=== PATIENT | female | born 1965 | race Caucasian/White ===

== ENCOUNTER 2024-12-22 07:15 | Outpatient (RCR) | payer OTHER, SELFPAY | END 2024-12-22 09:25 | disposition home or self-care (01) | LOC: ANHCPREHAB 07:15 | DX: I50.89 Other heart failure (principal) | CPT/HCPCS: 93798 ==

== ENCOUNTER 2025-02-25 09:23 | Outpatient (CLI) | payer OTHER, SELFPAY ==
--- NOTE | ~2025-02-25 | MM_ITS ---
EXAMINATION: MM screening [facility] w serafin HISTORY: Screening TECHNIQUE: Craniocaudal and mediolateral oblique 3-D tomosynthesis images were obtained and synthetic 2-D images were generated. CAD analysis was submitted and interpreted. COMPARISON: No prior mammogram is available for comparison at this institution. BREAST PARENCHYMAL COMPOSITION: Not Dense: The breasts are almost entirely fatty. FINDINGS: There is no evidence of suspicious mass, calcification, or architectural distortion to suggest malignancy in either breast. IMPRESSION: 1. No mammographic evidence of malignancy. Recommend routine screening mammography in one year. BI-RADS Category 1: Negative Reviewed, dictated, and finalized at Location [facility]. Reviewed, dictated and finalized at location Q. IMPRESSION: 1. No mammographic evidence of malignancy. Recommend routine screening mammogra phy in one year. BI-RADS Category 1: Negative
--- OUTSIDE RECORDS SUMMARY | 2025-02-25 10:32 | XMS_ITS ---
Author Organization [facility] al Address [address] [place] [address] Care Team Providers Care Pitch Worker Name Role Phone Marjorie Caballero MD Unavailable [phone] Yolande Santiago DO Primary Care Provider Active Problems Problem Noted Date Diagnosed Date Sinus pause 07/24/2024 Assessment & Plan (07/30/2024 2:01 PM CDT): -Pause on telemetry at 7:11AM on 07/24 (strip in paper chart) -Holding BB given pause Assessment & Plan (07/29/2024 11:51 AM CDT): -Pause on telemetry at 7:11AM on 07/24 (strip in paper chart) -Holding BB given pause Assessment & Plan (07/28/2024 12:06 PM CDT): -Pause on telemetry at 7:11AM on 07/24 (strip in paper chart) -Holding BB given pause Assessment & Plan (07/27/2024 5:25 PM CDT): -Pause on telemetry at 7:11AM on 07/24 (strip in chart -Holding BB given pause Assessment & Plan (07/26/2024 12:58 PM CDT): -Pause on telemetry at 7:11AM on 07/24 -Holding BB given pause Assessment & Plan (07/25/2024 1:13 PM CDT): -pause on telemetry at 0711 on 07/24 -metoprolol Assessment & Plan (07/24/2024 3:36 PM CDT): -pause on telemetry at 0711 on 07/24 -metoprolol Hypothyroid 07/22/2024 Assessment & Plan (07/30/2024 2:01 PM CDT): Newly elevated TSH 8.79, Free T4 0.74 -Continue synthroid 50mcg PO daily -Will plan to repeat TFTs in 4-6 weeks Assessment & Plan (07/29/2024 11:51 AM CDT): Newly elevated TSH 8.79, Free T4 0.74 -Continue synthroid 50mcg PO daily -Will plan to repeat TFTs in 4-6 weeks Assessment & Plan (07/28/2024 12:06 PM CDT): Newly elevated TSH 8.79, Free T4 0.74 -Continue synthroid 50mcg PO daily -Will plan to repeat TFTs in 4-6 weeks Assessment & Plan (07/27/2024 5:09 PM CDT): Newly elevated TSH 8.79, Free T4 0.74 -Continue synthroid 50mcg PO daily -Will plan to repeat TFTs in 4-6 weeks Assessment & Plan (07/26/2024 12:56 PM CDT): Newly elevated TSH 8.79, Free T4 0.74 -Continue synthroid 50mcg Po daily Assessment & Plan (07/25/2024 1:13 PM CDT): Newly elevated TSH 8.79, free T4 .74 -started synthroid 50mcg po daily Assessment & Plan (07/24/2024 3:18 PM CDT): Newly elevated TSH 8.79, free T4 .74 -started synthroid 50mcg po daily Decompensated heart failure 07/21/2024 Assessment & Plan (07/30/2024 1:06 PM CDT): TX w/ anterior wall infarction in early June, followed by a triple bypass surgery (DYER to LAD, ACVB to Lcx and R intermedius, ACVB to RCA) with Irving plasty 06/18/24. subsequently developed ischemic cardiomyopathy with postoperative low-output syndrome, requiring cardiovascular support via [facility]-ECMO from June 182024, and Impella 5.5 from June 242024. She also received levosimendan on June 17, 2024, and again from July 032024. Transferred here from [facility] in [facility] for VAD vs transplant as her EF remains low at 10%. GDMT held at OSH due to hypotension and JENNIFER. -ECHO (07/21) EF 22%/ Gr 3DD/Sev dilated LA w/ restrictive physiology/pseudoaneurysm of the apical cap swirling of contrast w/o definitive thrombus/Mild Rvd/NO sign valvular dz/IVC dilated/estimated PA 30 -RHC 07/23: RA 8, PA 37/15/23/w-16,CO 4.2-5.5, CI 2.23-2.9 -Hemodynamically stable, appears euvolemic -Continue Lasix 40 mg PO daily -CHIQUITA/ARB/MRA held in setting of JENNIFER -BB held held due to hypotension and pause -Daily weights, strict I/Os -ICD placement today Assessment & Plan (07/29/2024 11:48 AM CDT): TX w/ anterior wall infarction in early June, followed by a triple bypass surgery (DYER to LAD, ACVB to Lcx and R intermedius, ACVB to RCA) with Irving plasty 06/18/24. subsequently developed ischemic cardiomyopathy with postoperative low-output syndrome, requiring cardiovascular support via VA-ECMO from June 182024, and Impella 5.5 from June 242024. She also received levosimendan on June 17, 2024, and again from July 032024. Transferred here from [facility] in [facility] for VAD vs transplant as her EF remains low at 10%. GDMT held at OSH due to hypotension and JENNIFER. -ECHO (07/21) EF 22%/ Gr 3DD/Sev dilated LA w/ restrictive physiology/pseudoaneurysm of the apical cap swirling of contrast w/o definitive thrombus/Mild Rvd/NO sign valvular dz/IVC dilated/estimated PA 30 -RHC 07/23: RA 8, PA 37/15//w-16,CO 4.2-5.5, CI 2.23-2.9 -Hemodynamically stable, appears euvolemic -Continue Lasix 40 mg PO daily -CHIQUITA/ARB/MRA held in setting of JENNIFER -BB held held due to hypotension and pause -Daily weights, strict I/Os Assessment & Plan (07/28/2024 12:05 PM CDT): TX w/ anterior wall infarction in early June, followed by a triple bypass surgery (DYER to LAD, ACVB to Lcx and R intermedius, ACVB to RCA) with Irving plasty 06/18/24. subsequently developed ischemic cardiomyopathy with postoperative low-output syndrome, requiring cardiovascular support via VA-ECMO from June 18-2024, and Impella 5.5 from June 24-2024. She also received levosimendan on June 17, 2024, and again from July 03-2024. Transferred here from [facility] in [facility] for VAD vs transplant as her EF remains low at 10%. GDMT held at OSH due to hypotension and JENNIFER. -ECHO (07/21) EF 22%/ Gr 3DD/Sev dilated LA w/ restrictive physiology/pseudoaneurysm of the apical cap swirling of contrast w/o definitive thrombus/Mild Rvd/NO sign valvular dz/IVC dilated/estimated PA 30 -RHC 07/23: RA 8, PA 37/15//w-16,CO 4.2-5.5, CI 2.23-2.9 -Hemodynamically stable, appears euvolemic -Continue Lasix 40 mg PO daily -CHIQUITA/ARB/MRA held in setting of JENNIFER -BB held held due to hypotension and pause -Daily weights, strict I/Os Assessment & Plan (07/27/2024 5:09 PM CDT): TX w/ anterior wall infarction in early June, followed by a triple bypass surgery (DYER to LAD, ACVB to Lcx and R intermedius, ACVB to RCA) with Irving plasty 06/18/24. subsequently developed ischemic cardiomyopathy with postoperative low-output syndrome, requiring cardiovascular support via VA-ECMO from June 182024, and Impella 5.5 from June 242024. She also received levosimendan on June 17, 2024, and again from July 032024. Transferred here from [facility] in [facility] for VAD vs transplant as her EF remains low at 10%. GDMT held at OSH due to hypotension and JENNIFER. -ECHO (07/21) EF 22%/ Gr 3DD/Sev dilated LA w/ restrictive physiology/pseudoaneurysm of the apical cap swirling of contrast w/o definitive thrombus/Mild Rvd/NO sign valvular dz/IVC dilated/estimated PA 30 -RHC 07/23: RA 8, PA 37//w-16,CO 4.2-5.5, CI 2.23-2.9 -Hemodynamically stable, appears euvolemic -Decrease Lasix to 40 mg PO Daily -CHIQUITA/ARB/MRA held in setting of JENNIFER -Bisoprolol 2.5 held in setting hypotension, metoprolol held for hypotension and pause -Daily weights, strict I/Os Assessment & Plan (07/26/2024 12:54 PM CDT): TX w/ anterior wall infarction in early June, followed by a triple bypass surgery (DYER to LAD, ACVB to Lcx and R intermedius, ACVB to RCA) with Irving plasty 06/18/24. subsequently developed ischemic cardiomyopathy with postoperative low-output syndrome, requiring cardiovascular support via VA-ECMO from June 182024, and Impella 5.5 from June 242024. She also received levosimendan on June 17, 2024, and again from July 032024. Transferred here from [facility] in [facility] for VAD vs transplant as her EF remains low at 10%. GDMT held at OSH due to hypotension and JENNIFER. -ECHO (07/21) EF 22%/ Gr 3DD/Sev dilated LA w/ restrictive physiology/pseudoaneurysm of the apical cap swirling of contrast w/o definitive thrombus/Mild Rvd/NO sign valvular dz/IVC dilated/estimated PA 30 -RHC 07/23: RA 8, PA 37/15/23/w-16,CO 4.2-5.5, CI 2.23-2.9 -Hemodynamically stable, lactate WNL -Continue Lasix 40 mg PO BID -CHIQUITA/ARB/MRA held in setting of JENNIFER -Bisoprolol 2.5 held in setting hypotension, metoprolol held for hypotension and pause -Daily weights, strict I/Os Assessment & Plan (07/25/2024 1:14 PM CDT): TX w/ anterior wall infarction in early June, followed by a triple bypass surgery (DYER to LAD, ACVB to Lcx and R intermedius, ACVB to RCA) with Irving plasty 06/18/24. subsequently developed ischemic cardiomyopathy with postoperative low-output syndrome, requiring cardiovascular support via VA-ECMO from June 18-2024, and Impella 5.5 from June 24-2024. She also received levosimendan on June 17, 2024, and again from July 03-2024. Transferred here from [facility] for VAD vs transplant as her EF remains low at 10% . GDMT held at osh due to low bp and JENNIFER. Arrived today, feels warm and well perfused, lactate 1.1 -ECHO(07/21) EF 22%/ Gr 3DD/Sev dilated LA w/ restrictive physiology/pseudoaneurysm of the apical cap swirling of contrast w/o definitive thrombus/Mild Rvd/NO sign valvular dz/IVC dilated/estimated PA 30 today -GDMT: CHIQUITA/ARB/MRA held in setting of jennifer, Bisoprolol 2.5 held in setting of marginal Bp, metoprolol held for hypotension and pause -Diuretics: lasix 40 mg PO BID -Daily weights, strict I/Os -07/23 RHC: RA 8, PA 37/15//w-16,CO 4.2-5.5, CI 2.23-2.9 Assessment & Plan (07/24/2024 3:32 PM CDT): TX w/ anterior wall infarction in early June, followed by a triple bypass surgery (DYER to LAD, ACVB to Lcx and R intermedius, ACVB to RCA) with Irving plasty 06/18/24. subsequently developed ischemic cardiomyopathy with postoperative low-output syndrome, requiring cardiovascular support via VA-ECMO from June 182024, and Impella 5.5 from June 242024. She also received levosimendan on June 17, 2024, and again from July 032024. Transferred here from [facility] for VAD vs transplant as her EF remains low at 10% . GDMT held at osh due to low bp and JENNIFER. Arrived today, feels warm and well perfused, lactate 1.1 -ECHO(07/21) EF 22%/ Gr 3DD/Sev dilated LA w/ restrictive physiology/pseudoaneurysm of the apical cap swirling of contrast w/o definitive thrombus/Mild Rvd/NO sign valvular dz/IVC dilated/estimated PA 30 today -GDMT: CHIQUITA/ARB/MRA held in setting of jennifer, Bisoprolol 2.5 held in setting of marginal Bp, metoprolol held for hypotension and pause -Diuretics: lasix 40 mg PO BID -Daily weights, strict I/Os -07/23 RHC: RA 8, PA 37//23/w-16,CO 4.2-5.5, CI 2.23-2.9 Assessment & Plan (07/21/2024 6:41 AM CDT): TX w/ anterior wall infarction in early June, followed by a triple bypass surgery (DYER to LAD, ACVB to Lcx and R intermedius, ACVB to RCA) with Irving plasty 06/18/24. subsequently developed ischemic cardiomyopathy with postoperative low-output syndrome, requiring cardiovascular support via VA-ECMO from June 182024, and Impella 5.5 from June 242024. She also received levosimendan on June 17, 2024, and again from July 032024. 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 -HIT negative here -Avoid heparin products -Continue bivalirudin gtt Assessment & Plan (07/27/2024 4:45 PM CDT): 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 -HIT negative here -Avoid heparin products -Continue bivalirudin gtt Assessment & Plan (07/26/2024 12:55 PM CDT): 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 -HIT negative here -Avoid heparin products -Continue bivalirudin gtt Assessment & Plan (07/25/2024 1:14 PM CDT): 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, Currently on apixaban, will d/c and transition to bival -HIT negative here -avoid heparin products -continue bival Assessment & Plan (07/24/2024 3:19 PM CDT): 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 She was screened for this with echo and states she was told she did not have this. -No episodes of VT on telemetry -Continue amiodarone 200mg PO daily -EP consulted for primary prevention ICD- on schedule for today -Continuous telemetry monitoring -Keep K > 4.0 & Mg > 2.0, replete as indicated Assessment & Plan (07/29/2024 12:05 PM CDT): At OSH 06/2024 s/p amio and lido, two days after CABG had VT storm requiring 20 shocks, multi family members (father, uncles, aunts, grandmother) with sudden cardiac arrest, patient reports that her father had a ?structural abnormality. She was screened for this with echo and states she was told she did not have this. -No episodes of VT on telemetry -Continue amiodarone 200mg PO daily -EP consulted for primary prevention ICD- on schedule for today -Cardiac MRI ordered however radiology does not recommend using typical contrast given her current renal function, they could use an alternative contrast medium but the test would be high yield, recommended a CT scan instead-will discuss with EP today -Continuous telemetry monitoring -Keep K > 4.0 & Mg > 2.0, replete as indicated Assessment & Plan (07/28/2024 12:10 PM CDT): At OSH 06/2024 s/p amio and lido, two days after CABG had VT storm requiring 20 shocks, multi family members (father, uncles, aunts, grandmother) with sudden cardiac arrest, patient reports that her father had a ?structural abnormality. She was screened for this with echo and states she was told she did not have this. -No episodes of VT on telemetry -Continue amiodarone 200mg PO daily -EP consulted for primary prevention ICD -Cardiac MRI ordered however radiology does not recommend using typical contrast given her current renal function, they could use an alternative contrast medium but the test would be high yield, recommended a CT scan instead-will discuss with EP today -Continuous telemetry monitoring -Keep K > 4.0 & Mg > 2.0, replete as indicated Assessment & Plan (07/27/2024 4:47 PM CDT): At OSH 06/2024 s/p amio and lido, two days after CABG had VT storm requiring 20 shocks, multi family members (father, uncles, aunts, grandmother) with sudden cardiac arrest, patient reports that her father had a ?structural abnormality. She was screened for this with echo and states she was told she did not have this. -No episodes of VT on telemetry -Continue amiodarone 200mg PO daily -Planning for cardiac MRI this week -Consider EP consult for primary prevention ICD, pending advanced heart failure work up -Continuous telemetry monitoring -Keep K > 4.0 & Mg > 2.0, replete as indicated Assessment & Plan (07/26/2024 1:00 PM CDT): At OSH 06/2024 s/p amio and lido, two days after CABG had VT storm requiring 20 shocks, multi family members (father, uncles, aunts, grandmother) with sudden cardiac arrest, patient reports that her father had a ?structural abnormality. She was screened for this with echo and states she was told she did not have this. -No episodes of VT on telemetry -Continue amiodarone 200mg PO daily -Consider EP consult for primary prevention ICD, pending advanced heart failure work up -Continuous telemetry monitoring -Keep K > 4.0 & Mg > 2.0, replete as indicated Assessment & Plan (07/25/2024 1:41 PM CDT): At OSH 06/2024 s/p amio and lido, two days after CABG had VT storm requiring 20 shocks, multi family members (father, uncles, aunts, grandmother) with sudden cardiac arrest, patient reports that her father had a ?structural abnormality. She was screened for this with echo as a and states she was told she did not have this. - bisoprolol 2.5(on hold) - Amiodarone 200mg po daily-cont - strict telemetry - Mg>2, K>4 - Consider EP consult for primary prevention ICD, pending advanced heart failure work up Assessment & Plan (07/24/2024 3:31 PM CDT): At OSH 06/2024 s/p amio and lido, two days after CABG had VT storm requiring 20 shocks, multi family members (father, uncles, aunts, grandmother) with sudden cardiac arrest, patient reports that her father had a ?structural abnormality. She was screened for this with echo as a and states she was told she did not have this. - bisoprolol 2.5(on hold) - Amiodarone 200mg po daily-cont - strict telemetry - Mg>2, K>4 - Consider EP consult for primary prevention ICD, pending advanced heart failure work up Assessment & Plan (07/21/2024 6:41 AM CDT): At OSH 06/2024 s/p amio and lido - bisoprolol - tele - Mg>2, K>4 Thrombus 07/21/2024 Assessment & Plan (07/30/2024 2:02 PM CDT): Found to have L IJ clot 2/ at OSH and started on Eliquis -Eliquis changed to bivalirudin gtt on 07/21-continue for now Assessment & Plan (07/29/2024 11:52 AM CDT): Found to have L IJ clot 2/25 at OSH and started on Eliquis -Eliquis changed to bivalirudin gtt on 07/21-continue for now Assessment & Plan (07/28/2024 12:06 PM CDT): Found to have L IJ clot 2/25 at OSH and started on Eliquis -Eliquis changed to bivalirudin gtt on 07/21-continue for now Assessment & Plan (07/27/2024 4:46 PM CDT): Found to have L IJ clot 2/25 at OSH and started on Eliquis -Eliquis changed to bivalirudin gtt on 07/21-continue Assessment & Plan (07/26/2024 12:59 PM CDT): Found to have L IJ clot 2/25 at OSH and started on Eliquis -Eliquis changed to bivalirudin gtt on 07/21-continue Assessment & Plan (07/25/2024 1:13 PM CDT): found to have L IJ clot 2/25 at OSH now on eliquis - Eliquis changed to bival on 07/21 Assessment & Plan (07/24/2024 3:18 PM CDT): found to have L IJ clot 2/25 at OSH now on eliquis - Eliquis changed to bival on 07/21 Assessment & Plan (07/21/2024 6:32 AM CDT): found to have L IJ clot 225 at OSH now on eliquis - ctn eliquis (renally dosed) CAD (coronary artery disease) 07/21/2024 Assessment & Plan (07/30/2024 1:06 PM CDT): TX w/anterior wall infarction in early June, followed by a triple bypass surgery (DYER to LAD, ACVB to Lcx and R intermedius, ACVB to RCA) with Irving plasty 06/18/24. -Denies chest pain -Continue Plavix and statin -cardiac rehab as outpt Assessment & Plan (07/29/2024 11:47 AM CDT): TX w/anterior wall infarction in early June, followed by a triple bypass surgery (DYER to LAD, ACVB to Lcx and R intermedius, ACVB to RCA) with Irving plasty 06/18/24. -Denies chest pain -Continue Plavix and statin Assessment & Plan (07/28/2024 12:04 PM CDT): TX w/anterior wall infarction in early June, followed by a triple bypass surgery (DYER to LAD, ACVB to Lcx and R intermedius, ACVB to RCA) with Irving plasty 06/18/24. -Denies chest pain -Continue Plavix and statin Assessment & Plan (07/27/2024 4:44 PM CDT): TX w/anterior wall infarction in early June, followed by a triple bypass surgery (DYER to LAD, ACVB to Lcx and R intermedius, ACVB to RCA) with Irving plasty 06/18/24. -Denies chest pain -Continue Plavix and statin Assessment & Plan (07/26/2024 12:51 PM CDT): TX w/anterior wall infarction in early June, followed by a triple bypass surgery (DYER to LAD, ACVB to Lcx and R intermedius, ACVB to RCA) with Irving plasty 06/18/24. -Denies chest pain -Continue Plavix and statin Assessment & Plan (07/25/2024 1:14 PM CDT): TX w/ anterior wall infarction in early June, followed by a triple bypass surgery (DYER to LAD, ACVB to Lcx and R intermedius, ACVB to RCA) with Irving plasty 06/18/24. -cont plavix -cont statin Assessment & Plan (07/24/2024 3:30 PM CDT): TX w/ anterior wall infarction in early June, followed by a triple bypass surgery (DYER to LAD, ACVB to Lcx and R intermedius, ACVB to RCA) with Irving plasty 06/18/24. -cont plavix -cont statin Assessment & Plan (07/21/2024 6:32 AM CDT): TX w/ anterior wall infarction in early June, followed by a triple bypass surgery (DYER to LAD, ACVB to Lcx and R intermedius, ACVB to RCA) with Irving plasty 06/18/24 c/b ischemic cardiomyopathy - plavix, statin Hodgkin lymphoma 07/21/2024 Assessment & Plan (07/28/2024 12:06 PM CDT): Mediastinal Hodgkin s/p chemo and radiation 2000 Assessment & Plan (07/26/2024 12:55 PM CDT): Mediastinal Hodgkin s/p chemo and radiation 2000 Assessment & Plan (07/25/2024 1:13 PM CDT): mediastinal Hodgkin - S/p chemo and radiation 2000 Assessment & Plan (07/24/2024 3:18 PM CDT): mediastinal Hodgkin - S/p chemo and radiation 2000 Assessment & Plan (07/21/2024 6:55 AM CDT): mediastinal Hodgkin s/p chemorads 2000 JENNIFER (acute kidney injury) 07/21/2024 Assessment & Plan (07/30/2024 2:00 PM CDT): Acute kidney injury in setting of cardiogenic shock, s/p CABG, S/P ECMO, s/p impella, creatinine at OSH 5.5. Unknown baseline creatinine. Patient was on lasix gtt at OSH (turned off for transfer flight), Had HD 1 day [employer] (HD was 3-4 days prior to that). She is making urine. 1L urine was emptied from matthew upon arrival (matthew now discontinued). -Rt IJ HD catheter removed 07/23 -Renal consulted -Renal US unremarkable -Urine Cx with Hafnia Alvei-started on IV ceftriaxone on 07/25 -Urinary symptoms improved -Continue ceftriaxone 1G Q 24 hours for UTI has had 5 days -Cr remains elevated but improving (5.27) -Making good urine (UOP 2L/24 hours) Assessment & Plan (07/29/2024 11:45 AM CDT): Acute kidney injury in setting of cardiogenic shock, s/p CABG, S/P ECMO, s/p impella, creatinine at OSH 5.5. Unknown baseline creatinine. Patient was on lasix gtt at OSH (turned off for transfer flight), Had HD 1 day [employer] (HD was 3-4 days prior to that). She is making urine. 1L urine was emptied from matthew upon arrival (matthew now discontinued). -Rt IJ HD catheter removed 07/23 -Renal consulted -Renal US unremarkable -Urine Cx with Hafnia Alvei-started on IV ceftriaxone on 07/25 -Urinary symptoms improved -Continue ceftriaxone 1G Q 24 hours for UTI -Cr remains elevated but improving (6.29) -Making good urine (UOP 2L/24 hours) -Q 12 BMPs Assessment & Plan (07/28/2024 12:04 PM CDT): Acute kidney injury in setting of cardiogenic shock, s/p CABG, S/P ECMO, s/p impella, creatinine at OSH 5.5. Unknown baseline creatinine. Patient was on lasix gtt at OSH (turned off for transfer flight), Had HD 1 day [employer] (HD was 3-4 days prior to that). She is making urine. 1L urine was emptied from matthew upon arrival (matthew now discontinued). -Rt IJ HD catheter removed 07/23 -Renal consulted -Renal US unremarkable -Urine Cx with Hafnia Alvei-started on IV ceftriaxone on 07/25 -Urinary symptoms improved -Continue ceftriaxone 1G Q 24 hours for UTI -Cr remains elevated but improving (6.29) -Making good urine (UOP 2,100/24 hours) -Q 12 BMPs Assessment & Plan (07/27/2024 5:08 PM CDT): Acute kidney injury in setting of cardiogenic shock, s/p CABG, S/P ECMO, s/p impella, creatinine at OSH 5.5. Unknown baseline creatinine. Patient was on lasix gtt at OSH (turned off for transfer flight), Had HD 1 day [employer] (HD was 3-4 days prior to that). She is making urine. 1L urine was emptied from matthew upon arrival (matthew now discontinued). -Rt IJ HD catheter removed 07/23 -Renal consulted -Renal US unremarkable -Urine cx with Hafnia Alvei-started on IV ceftriaxone on 07/25 -Continue ceftriaxone 1G Q 24 hours for UTI -Cr remains elevated but improving (7.20) -UOP 2,500/24 hours -Decrease Lasix to 40 mg PO daily -Q 12 BMPs Assessment & Plan (07/26/2024 12:49 PM CDT): Acute kidney injury in setting of cardiogenic shock, s/p CABG, S/P ECMO, s/p impella, creatinine at OSH 5.5 is making urine. Unknown baseline creatinine. Electrolytes stable, phos 3.3, k 4.2, creatinine 6.12. Patient was on lasix gtt at OSH (turned off for transfer flight), Had HD 1 day [employer] (HD was 3-4 days prior to that) She is making urine. 1L urine was emptied from matthew upon arrival (matthew now discontinued). -Rt IJ HD catheter removed 07/23 -Renal consulted -Renal US unremarkable -Urine cx with Hafnia Alvei -Continue ceftriaxone 1G Q 24 hours for UTI -Cr remains elevated but improving -UOP 1,700/24 hours -Continue lasix 40mg PO BID -Q 12 BMPs Assessment & Plan (07/25/2024 1:46 PM CDT): Acute kidney injury in setting of cardiogenic shock, s/p CABG, S/P ECMO, s/p impella, creatinine at osh 5.5 is making urine. Unknown baseline creatinine. electrolytes stable, phos 3.3, k 4.2, creatinine 6.12. Patient was on lasix gtt at osh (turned off for transfer flight), Had HD 1 day scow captain ( HD was 3-4 days prior to that) Is making urine. 1L urine emptied from matthew upon arrival (matthew now discontinued) -Rt IJ HD catheter removed 07/23 -UOP 2200/24 hours -Lasix 40mg po BID -BMP bid, electrolytes stable, phos 4.0, k 4.5, creatinine remains elevated, BUN 50's -Renal consult -renal us unremarkable, ua (done), urine cx with Hafnia Alvei will discuss with renal about treatment Assessment & Plan (07/24/2024 3:31 PM CDT): Acute kidney injury in setting of cardiogenic shock, s/p CABG, S/P ECMO, s/p impella, creatinine at osh 5.5 is making urine. Unknown baseline creatinine. electrolytes stable, phos 3.3, k 4.2, creatinine 6.12. Patient was on lasix gtt at osh (turned off for transfer flight), Had HD 1 day scow captain ( HD was 3-4 days prior to that) Is making urine. 1L urine emptied from matthew upon arrival (matthew now discontinued) -Rt IJ HD catheter removed 07/23 -UOP 1300/24 hours -Lasix 40mg po BID -BMP bid, electrolytes stable, phos 4.0, k 4.5, creatinine slightly improved -Renal consult -recs renal us, ua (done), urine cx sent Tobacco use 07/21/2024 Assessment & Plan (07/30/2024 2:02 PM CDT): Smoked 1pk/day for 25 years -Quit 05/2024 (cut back in April, quit two weeks prior to OSH admission) Assessment & Plan (07/29/2024 11:52 AM CDT): Smoked 1pk/day for 25 years -Quit 05/2024 (cut back in April, quit two weeks prior to OSH admission) Assessment & Plan (07/28/2024 12:06 PM CDT): Smoked 1pk/day for 25 years -Quit 05/2024 (cut back in April, quit two weeks prior to OSH admission) Assessment & Plan (07/26/2024 12:59 PM CDT): Smoked 1pk/day for 25 years -Quit 05/2024 (cut back in April, quit two weeks prior to OSH admission) Assessment & Plan (07/25/2024 1:12 PM CDT): Smoked 1pk/day for 25 years -Quit 05/2024 (cut back in Apr, quit two weeks prior to OSH admission) Assessment & Plan (07/24/2024 3:17 PM CDT): Smoked 1pk/day for 25 years -Quit 05/2024 (cut back in Apr, quit two weeks prior to OSH admission) VT (ventricular tachycardia) 07/14/2024 Assessment & Plan (07/30/2024 2:04 PM CDT): Pt had episode of V-tach at hospital in [facility] but we have no record of it. -attempting to make contact with [facility] to see if EKG, telemetry strips, morphology, etc can be found so the ICD can be programmed correctly. -have called and emailed several times with no response Assessment & Plan (07/29/2024 12:07 PM CDT): Pt had episode of V-tach at hospital in [facility] but we have no record of it. -attempting to make contact with [facility] to see if EKG, telemetry strips, morphology, etc can be found so the ICD can be programmed correctly. Current Treatment and Therapy Plans No current plan information found. Past Treatment and Therapy Plans No past plan information found. Lifetime Dose Tracking * Chemical Lifetime Dose Automatic Entry Manual Entr y Fluoro Time 6.5 minutes 0 minutes 6.5 minutes Air kerma at the reference point (Ka,r) 57 mGy 0 mGy 57 mGy DLP 555 mGycm 555 mGycm 0 mGycm DAP 6.122 Gy-cm2 0 Gy-cm2 6.122 Gy-cm2
--- OUTSIDE RECORDS SUMMARY | 2025-02-25 10:32 | XMS_ITS | Clinical Summary ---
Author Organization [facility] Address [address] [place] [address] Care Team Providers Care Professional Architect Name Role Phone Mikal Purcell MD Unavailable [phone] Yolande Santiago DO Primary Care Provider Allergies Active Allergy Reactions Criticality Noted Date Comments Heparin HIT High 07/21/2024 Latex Blisters High 07/21/2024 Medications atorvastatin (LIPITOR) 80 mg tablet Take 1 tablet (80 mg total) by mouth nightly 30 tablet 08/01/19 25 026 Active clopidogreL (PLAVIX) 75 mg tablet Take 1 tablet (75 mg total) by mouth daily 30 tablet 08/02/19 026 Active levothyroxine (SYNTHROID) 50 mcg tablet Take 1 tablet (50 mcg total) by mouth forensic photographer before breakfast 30 tablet 2 08/02/19 25 Active metoprolol XL (TOPROL-XL) 25 mg extended release tablet Take 0.5 tablets (12.5 mg total) by mouth nightly 15 tablet 08/01/[address] (PROTONIX) 40 mg EC tabletIndications: Treatment of Non-Bleeding Gastric Disorder Take 1 tablet (40 mg total) by mouth daily 30 tablet 08/02/19 25 026 Active isosorbide dinitrate (ISORDIL) 5 mg tablet Take 1 tablet (5 mg total) by mouth 3 (three) times a day 90 tablet 11 08/27/19 25 Active sertraline (Zoloft) 25 mg tablet Take 1 tablet (25 mg total) by mouth daily 30 tablet 08/27/19 Active nitroglycerin (Nitrostat) 0.[address] 1 tablet (0.4 mg total) under the tongue every 5 (five) minutes as needed for chest pain (may take up to 3 tablets then call 911 if chest pain persists) 90 tablet 3 08/27/19 25 026 Active ondansetron ODT (ZOFRAN-ODT) 4 mg disintegrating tablet Take 1 tablet (4 mg total) by mouth every 8 (eight) hours as needed for nausea or vomiting 15 tablet 1 09/02/19 25 Active ramelteon (ROZEREM) 8 mg tablet 09/11/19 25 Active empagliflozin (JARDIANCE) 10 mg tablet Take 1 tablet (10 mg total) by mouth daily 30 tablet 11/07/19 026 Active amiodarone (PACERONE) 100 mg tabletIndications: Life-Threatening Ventricular Tachycardia Take 1 tablet (100 mg total) by mouth daily 30 tablet 11/13/19 026 Active apixaban (ELIQUIS) 5 mg tabletIndications: atrial fibrillation Take 1 tablet (5 mg total) by mouth every 12 (twelve) hours 180 tablet 11/28/19 25 026 Active torsemide (DEMADEX) 20 mg tablet Take 3 tablets (60 mg total) by mouth 2 (two) times a day 540 tablet 3 12/26/19 25 026 Active metOLazone (ZAROXOLYN) 2.5 mg tablet Take 1 tablet (2.5 mg total) by mouth once a week 30mins before morning dose of torsemide. 12 tablet 3 12/26/19 25 026 Active ergocalciferol (VITAMIN D) 50,000 unit capsule Take 1 capsule (50,000 Units total) by mouth once a week 4 capsule 1 12/26/19 25 Active potassium chloride ER (KLOR-CON) 20 mEq CR tablet Take 2 tablets (40 mEq total) by mouth 2 (two) times a day 360 tablet 3 02/04/20 25 026 Active potassium chloride (KLOR-CON) 20 mEq packet Take 1 packet (20 mEq total) by mouth 2 (two) times a day Dissolve each packet in at least 4 ounces (120 mL) of cold water or other beverage prior to administratio n. 60 packet 11 08/30/19 25 025 Discontin ued(Alter william therapy) Hospital, Clinic, or Other Facility Administered Medication Ordered Dose Route Frequency Start Date End Date Status perflutren protein-a (OPTISON) 3 mL in sodium chloride 0.9% 8 mL syringe 1 - 8 mL IV Once in imaging 02/02/2025 02/02/2025 Ended Active Problems Problem Noted Date Diagnosed Date [...] Assessment & Plan (07/30/2024 1:06 PM CDT): [place] anterior [place] infarction in early June, [...] again from July 032024. Transferred here from [facility] in [facility] for VAD vs transplant as her EF remains low at 10%. GDMT held at OSH due to hypotension and ANNA. -ECHO (07/21) EF 22%/ Gr 3DD/Sev dilated LA w/ restrictive physiology/pseudoaneurysm of the apical cap swirling of contrast w/o definitive thrombus/Mild Rvd/NO sign valvular dz/IVC dilated/estimated PA 30 -RHC 07/23: RA 8, PA 37/15/23/w-16,CO 4.2-5.5, CI 2.23-2.9 -Hemodynamically stable, appears euvolemic -Continue Lasix 40 mg PO daily -CHIQUITA/ARB/MRA held in setting of ANNA -BB held held due to hypotension and pause -Daily weights, strict I/Os -ICD placement today Assessment & Plan (07/29/2024 11:48 AM CDT): [place] anterior [place] infarction in early June, [...] again from July 032024. Transferred here from [facility] in [facility] for VAD vs transplant as her EF remains low at 10%. GDMT held at OSH due to hypotension and ANNA. -ECHO (07/21) EF 22%/ Gr 3DD/Sev dilated LA w/ restrictive physiology/pseudoaneurysm of the apical cap swirling of contrast w/o definitive thrombus/Mild Rvd/NO sign valvular dz/IVC dilated/estimated PA 30 -RHC 07/23: RA 8, PA 37/15/23/w-16,CO 4.2-5.5, CI 2.23-2.9 -Hemodynamically stable, appears euvolemic -Continue Lasix 40 mg PO daily -CHIQUITA/ARB/MRA held in setting of ANNA -BB held held due to hypotension and pause -Daily weights, strict I/Os Assessment & Plan (07/28/2024 12:05 PM CDT): [place] infarction in early June, [...] again from July 03-2024. Transferred here from [facility] in [facility] for VAD vs transplant as her EF remains low at 10%. GDMT held at OSH due to hypotension and ANNA. -ECHO (07/21) EF 22%/ Gr 3DD/Sev dilated LA w/ restrictive physiology/pseudoaneurysm of the apical cap swirling of contrast w/o definitive thrombus/Mild Rvd/NO sign valvular dz/IVC dilated/estimated PA 30 -RHC 07/23: RA 8, PA 37/15/23/w-16,CO 4.2-5.5, CI 2.23-2.9 -Hemodynamically stable, appears euvolemic -Continue Lasix 40 mg PO daily -CHIQUITA/ARB/MRA held in setting of ANNA -BB held held due to hypotension and pause -Daily weights, strict I/Os Assessment & Plan (07/27/2024 5:09 PM CDT): [place] infarction in early June, [...] again from July 032024. Transferred here from [facility] in [facility] for VAD vs transplant as her EF remains low at 10%. GDMT held at OSH due to hypotension and ANNA. -ECHO (07/21) EF 22%/ Gr 3DD/Sev dilated LA w/ restrictive physiology/pseudoaneurysm of the apical cap swirling of contrast w/o definitive thrombus/Mild Rvd/NO sign valvular dz/IVC dilated/estimated PA 30 -RHC 07/23: RA 8, PA 37//w-16,CO 4.2-5.5, CI 2.23-2.9 -Hemodynamically stable, appears euvolemic -Decrease Lasix to 40 mg PO Daily -CHIQUITA/ARB/MRA held in setting of ANNA -Bisoprolol 2.5 held in setting hypotension, metoprolol held for hypotension and pause -Daily weights, strict I/Os Assessment & Plan (07/26/2024 12:54 PM CDT): [place] infarction in early June, [...] again from July 032024. Transferred here from [facility] in [facility] for VAD vs transplant as her EF remains low at 10%. GDMT held at OSH due to hypotension and ANNA. -ECHO (07/21) EF 22%/ Gr 3DD/Sev dilated LA w/ restrictive physiology/pseudoaneurysm of the apical cap swirling of contrast w/o definitive thrombus/Mild Rvd/NO sign valvular dz/IVC dilated/estimated PA 30 -RHC 07/23: RA 8, PA 37/15/23/w-16,CO 4.2-5.5, CI 2.23-2.9 -Hemodynamically stable, lactate WNL -Continue Lasix 40 mg PO BID -CHIQUITA/ARB/MRA held in setting of ANNA -Bisoprolol 2.5 held in setting hypotension, metoprolol held for hypotension and pause -Daily weights, strict I/Os Assessment & Plan (07/25/2024 1:14 PM CDT): [place] infarction in early June, [...] again from July 03-2024. Transferred here from [facility] for VAD vs transplant as her EF remains low at 10% . GDMT held at osh due to low bp and ANNA. Arrived today, feels warm and well perfused, lactate 1.1 -ECHO(07/21) EF 22%/ Gr 3DD/Sev dilated LA w/ restrictive physiology/pseudoaneurysm of the apical cap swirling of contrast w/o definitive thrombus/Mild Rvd/NO sign valvular dz/IVC dilated/estimated PA 30 today -GDMT: CHIQUITA/ARB/MRA held in setting of anna, Bisoprolol 2.5 held in setting of marginal Bp, metoprolol held for hypotension and pause -Diuretics: lasix 40 mg PO BID -Daily weights, strict I/Os -07/23 RHC: RA 8, PA 37//w-16,CO 4.2-5.5, CI 2.23-2.9 Assessment & Plan (07/24/2024 3:32 PM CDT): [place] infarction in early June, [...] again from July 032024. Transferred here from [facility] for VAD vs transplant as her EF remains low at 10% . GDMT held at osh due to low bp and ANNA. Arrived today, feels warm and well perfused, lactate 1.1 -ECHO(07/21) EF 22%/ Gr 3DD/Sev dilated LA w/ restrictive physiology/pseudoaneurysm of the apical cap swirling of contrast w/o definitive thrombus/Mild Rvd/NO sign valvular dz/IVC dilated/estimated PA 30 today -GDMT: CHIQUITA/ARB/MRA held in setting of anna, Bisoprolol 2.5 held in setting of marginal Bp, metoprolol held for hypotension and pause -Diuretics: lasix 40 mg PO BID -Daily weights, strict I/Os -07/23 RHC: RA 8, PA 37///w-16,CO 4.2-5.5, CI 2.23-2.9 Assessment & Plan (07/21/2024 6:41 AM CDT): [place] infarction in early June, [...] again from July 032024. Transferred here from [facility] for VAD vs transplant as her EF [...] Plan (07/21/2024 6:31 AM CDT): HIT at [facility] 06/2024 - avoid heparin products Ventricular [...] CDT): found to have L IJ clot 07/08 at OSH now on eliquis - Eliquis changed to bival on 07/21 Assessment & Plan (07/24/2024 3:18 PM CDT): found to have L IJ clot 07/08 at OSH now on eliquis - Eliquis changed to bival on 07/21 Assessment & Plan (07/21/2024 6:32 AM CDT): found to have L IJ clot 07/08 at OSH now on eliquis - ctn eliquis (renally dosed) CAD (coronary artery disease) 07/21/2024 Assessment & Plan (07/30/2024 1:06 PM CDT): [place] in early June, followed by a triple bypass surgery (DYER to LAD, ACVB to Lcx and R intermedius, ACVB to RCA) with [facility] plasty 06/18/24. -Denies chest pain -Continue Plavix and statin -cardiac rehab as outpt Assessment & Plan (07/29/2024 11:47 AM CDT): [place] infarction in early June, followed by a triple bypass surgery (DYER to LAD, ACVB to Lcx and R intermedius, ACVB to RCA) with [facility]asty 06/18/24. -Denies chest pain -Continue Plavix and statin Assessment & Plan (07/28/2024 12:04 PM CDT): [place] infarction in early June, followed by a triple bypass surgery (DYER to LAD, ACVB to Lcx and R intermedius, ACVB to RCA) with [facility]asty 06/18/24. -Denies chest pain -Continue Plavix and statin Assessment & Plan (07/27/2024 4:44 PM CDT): [place] infarction in early June, followed by a triple bypass surgery (DYER to LAD, ACVB to Lcx and R intermedius, ACVB to RCA) with [facility] plasty 06/18/24. -Denies chest pain -Continue Plavix and statin Assessment & Plan (07/26/2024 12:51 PM CDT): [place] infarction in early June, followed by a triple bypass surgery (DYER to LAD, ACVB to Lcx and R intermedius, ACVB to RCA) with [facility] 06/18/24. -Denies chest pain -Continue Plavix and statin Assessment & Plan (07/25/2024 1:14 PM CDT): [place] infarction in early June, followed by a triple bypass surgery (DYER to LAD, ACVB to Lcx and R intermedius, ACVB to RCA) with [facility]asty 06/18/24. -cont plavix -cont statin Assessment & Plan (07/24/2024 3:30 PM CDT): [place] infarction in early June, followed by a triple bypass surgery (DYER to LAD, ACVB to Lcx and R intermedius, ACVB to RCA) with [facility] 06/18/24. -cont plavix -cont statin Assessment & Plan (07/21/2024 6:32 AM CDT): [place] infarction in early June, followed by a triple bypass surgery (DYER to LAD, ACVB to Lcx and R intermedius, ACVB to RCA) with [facility] 06/18/24 c/b ischemic cardiomyopathy - plavix, statin Hodgkin lymphoma 07/21/2024 Assessment & Plan (07/28/2024 12:06 PM CDT): Mediastinal Hodgkin s/p chemo and radiation 2001 Assessment & Plan (07/26/2024 12:55 PM CDT): Mediastinal Hodgkin s/p chemo and radiation 2000 Assessment & Plan (07/25/2024 1:13 PM CDT): mediastinal Hodgkin - S/p chemo and radiation 2000 Assessment & Plan (07/24/2024 3:18 PM CDT): mediastinal Hodgkin - S/p chemo and radiation 2000 Assessment & Plan (07/21/2024 6:55 AM CDT): mediastinal Hodgkin s/p chemorads 2000 ANNA (acute kidney injury) 07/21/2024 Assessment & Plan (07/30/2024 2:00 PM CDT): Acute kidney injury in setting of cardiogenic shock, s/p CABG, S/P ECMO, s/p impella, creatinine at OSH 5.5. Unknown baseline creatinine. Patient was on lasix gtt at OSH (turned off for transfer flight), Had HD 1 day SENIOR RESEARCH FELLOW (HD was 3-4 days prior to that). [...] for transfer flight), Had HD 1 day SENIOR RESEARCH FELLOW (HD was 3-4 days prior to that). [...] for transfer flight), Had HD 1 day SENIOR RESEARCH FELLOW (HD was 3-4 days prior to that). [...] for transfer flight), Had HD 1 day SENIOR RESEARCH FELLOW (HD was 3-4 days prior to that). [...] for transfer flight), Had HD 1 day SENIOR RESEARCH FELLOW (HD was 3-4 days prior to that) [...] for transfer flight), Had HD 1 day captain room service ( HD was 3-4 days prior to [...] for transfer flight), Had HD 1 day captain room service ( HD was 3-4 days prior to [...] had episode of V-tach at hospital in [facility] but we have no record of it. -attempting to make contact with [facility] to see if EKG, telemetry strips, morphology, etc can be found so the ICD can be programmed correctly. -have called and emailed several times with no response Assessment & Plan (07/29/2024 12:07 PM CDT): Pt had episode of V-tach at hospital in [facility] but we have no record of it. -attempting to make contact with [facility] to see if EKG, telemetry strips, morphology, etc can be found so the ICD can be programmed correctly. Encounters Date Type Department Care Team Description 02/02/2025 3:00 PM CDT Ancillary Procedure [facility] [address] [place] [address] [address] [place] [phone] Chronic combined systolic and diastolic heart failure (HCC) 02/02/2025 Orders Only [facility] Transplant Heart [address] [place] [address] [address] Mailstop [phone] [place] [address] Omari Bustamante RN Chronic combined systolic and diastolic heart failure (HCC) (Primary Dx) 01/26/2025 9:45 AM CDT Office Visit [facility] Cardiology [facility] Office Building [address] [place] [phone] Mikal Purcell MD Chronic combined systolic and diastolic heart failure (HCC) (Primary Dx) 01/24/2025 Telephone [facility] Transplant Heart [address] [place] [address] [address] Mailstop [phone] [place] [address] Gary Caraballo RN critical lab 12/28/2024 Results Follow-Up [facility] Medicine Cardiology [address] [facility] [address] [place] [address] [place] [phone] Mikal Purcell MD Basic metabolic panel, Magnesium 12/25/2024 1:20 PM CDT Office Visit [facility] Medicine Nephrology [address] 5th [place] [address] [place] [phone] Stage 4 chronic kidney disease (HCC) (Primary Dx) 12/24/2024 Telephone [facility] Cardiology [address] [place] [address] [place] [address] Iman Singh 12/24/[address] [facility] Transplant Heart [address] [facility] [phone] [place] [address] Tammi Lopez RN 12/17/2024 Orders Only [facility] Cardiology [address] [facility] Office Building [address] [place] [address] Jg Cobb MD 12/15/2024 Results Follow-Up [facility] Cardiology [address] [place] [address] [place] [address] Mikal Purcell MD US Vein Duplex Upper Extremity Bilateral Complete 12/02/2024 12:23 PM CDT - 12/02/2024 11:59 PM CDT Hospital Encounter [facility] [address] [place] [address] 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 Building [address] [place] [address] Mikal Purcell MD Eliquis from Last 3 Months Surgical History Surgery Date Site/Laterality Comments CORONARY ARTERY BYPASS GRAFT 06/18/2024 At the [facility], Khurram,DYER to LAD, ACVB to Lcx and R intermedius, ACVB to RCA) with [facility] plasty 06/18/24 EXTRACORPOREAL CIRCULATION 06/18/2024 OSH ([facility]) 06/18-06/24/2024, Impella 06/24-07/05/2024 CARDIAC CATHETERIZATION 07/23/2024 N/A Procedure: RIGHT HEART CATHETERIZATION 54219; Surgeon: Mikal Purcell MD; Location: [facility] CARDIAC MEDIA RELATIONS DIRECTOR; Service: Cardiovascular; Laterality: N/A; for Wed 07/23 CARDIAC ELECTROPHYSIOLOGY PROCEDURE 07/30/2024 N/A Procedure: INSERT/REPLACE IMPLANTABLE CARDIOVERTER-DEFIBRILLATOR (ICD) DUAL CHAMBER SYSTEM [id number]; Surgeon: Jg Cobb MD; Location: [facility]; Service: Cardiovascular; Laterality: N/A; Medical devices from this surgery are in the Medical Devices section. Family History Medical History Relation Name Comments Heart disease Father Heart disease Father's Brother 1 Heart disease Father's Sister Heart disease Paternal Grandmother Heart disease Sister Anesthesia problems Neg Hx Relation Name Status Comments Father Father's Brother 1 Father's Brother 2 Alive Father's Sister Paternal Grandmother Sister Social History Tobacco Use Types Packs/Day Years Used Date Smoking Tobacco: Former Cigarettes Q uit: 1999 Tobacco Cessation:Counseling Given: Not Answered AUDIT-C Answer Date Recorded Q1: How often do you have a drink containing alcohol? Never 07/30/2024 Q2: How many drinks containi ng alcohol do you have on a typical day when you are drinking? Patient does not drink Q3: How often do you have si x or more drinks on one occasion? Never 07/30/2024 Personal Safety Answer Date Recorded Have you ever been in or are you currently in a harmful physical or emotional relationship or is someone making you feel afraid or unsafe? 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 Gender Identity Not on file Sexual Orientation Not on file Obstetrics History Last Filed Vital Signs Vital Sign Reading Time Taken Comments Blood Pressure 108/60 01/26/2025 9:54 AM CDT Pulse 66 01/26/2025 9:54 AM CDT Temperature 36.6 C (97.9 F) 08/21/2024 2:47 PM CDT Respiratory Rate 18 07/31/2024 11:49 AM CDT Oxygen Saturation 97% 01/26/2025 9:54 AM CDT Inhaled Oxygen Concentration - - Weight 79.4 kg (175 lb) 01/26/2025 9:54 AM CDT Height 170.2 cm (5' 7) 01/26/2025 9:54 AM CDT Body Mass Index 27.41 01/26/2025 9:54 AM CDT Plan of Treatment Health Maintenance Due Date Last Done Comments Breast Cancer Screening-Mammogram 1967 Colon Cancer Screening-Colonoscopy 1967 Depression Screening 1967 Hepatitis C Screening 1967 Hepatitis B Screening 1985 Regular Well Visit/Exam 18-64 1985 Zoster Vaccine (1 of 2) 1986 Influenza Vaccine (#1) 2025 DTaP/Tdap/Td Vaccine (2 - Td or Tdap) 09/09/2034 Pneumococcal vaccine <65 Completed 09/30/2024 Medical Devices Implanted Type Area Security Investigator Device Identifier Shelf Expiration Date Model / Serial / Lot [employer] Defib Cardiac [id number] Implantable 2 Chamber [id number] - [id number] - [id number] Implanted:Qty: 1 on 07/30/2024 by Jg Cobb MD at [facility] ICD Left: Chest Wall [employer] 05/13/2026 [id number] / [id number] / [id number] [employer] Durata 6.8fr 58cm 1 Coil True Bipolar Active Fixation Extendable 7122q/58 - [id number] - [id number] Implanted:Qty: 1 on 07/30/2024 by Jg Cobb MD at [facility] Lead Right: Ventricle [employer] 06/13/2027 7122Q/58 / [id number] / [id number] [employer] Active Fixation Steroid Eluting Latex Free Sterile Right Atrium Ventricle Ultipace 52cm [id number] - [id number] - [id number] Implanted:Qty: 1 on 07/30/2024 by Jg Cobb MD at [facility] Lead Right: [employer] 05/13/2027 LP A1231/5 2 / [id number] / [id number] Procedures Procedure Name Priority Date/Time Associated Diagnosis Comments COPY(IES) SENT TO: Routine 02/10/2025 12:53 PM CDT BASIC METABOLIC PANEL Routine 02/10/2025 12:53 PM CDT Chronic combined systolic and diastolic heart failure (HCC) TRANSTHORACIC ECHO (TTE) LIMITED/FOLLOW UP W LTD DOPPLER/CF W CONTRAST Routine 02/02/2025 3:27 PM CDT Chronic combined systolic and diastolic heart failure (HCC) PRO B-TYPE NATRIURETIC PEPTIDE Routine 01/29/2025 9:56 AM CDT Chronic combined systolic and diastolic heart failure (HCC) CBC WITH AUTO DIFFERENTIAL Routine 01/29/2025 9:56 AM CDT Chronic combined systolic and diastolic heart failure (HCC) MAGNESIUM Routine 01/29/2025 9:56 AM CDT Chronic combined systolic and diastolic heart failure (HCC) COMPREHENSIVE METABOLIC PANEL Routine 01/29/2025 9:56 AM CDT Chronic combined systolic and diastolic heart failure (HCC) COPY(IES) SENT TO: Routine 01/23/2025 10:59 AM CDT MAGNESIUM Routine 01/23/2025 10:59 AM CDT Chronic combined systolic and diastolic heart failure (HCC) PRO B-TYPE NATRIURETIC PEPTIDE Routine 01/23/2025 10:59 AM CDT Chronic combined systolic and diastolic heart failure (HCC) COMPREHENSIVE METABOLIC PANEL Routine 01/23/2025 10:59 AM CDT Chronic combined systolic and diastolic heart failure (HCC) BASIC METABOLIC PANEL Routine 01/05/2025 8:24 AM CDT Decompensated heart failure (HCC) PRO B-TYPE NATRIURETIC PEPTIDE Routine 01/05/2025 8:24 AM CDT Decompensated heart failure (HCC) MAGNESIUM Routine 12/26/2024 1:58 PM CDT Decompensated heart failure (HCC) BASIC METABOLIC PANEL Routine 12/26/2024 1:58 PM CDT Decompensated heart failure (HCC) COPY RECEIVED FROM Routine 12/17/2024 9: 11 AM CDT COPY(IES) SENT TO: Routine 12/17/2024 9: 11 AM CDT IRON PROFILE W/ IBC Routine 12/17/2024 9 :11 AM CDT Anemia in chronic kidney disease, unspecified CKD stage FERRITIN Routine 12/17/2024 9:11 AM CDT Anemia in chronic kidney disease, unspecified CKD stage VITAMIN D 25 HYDROXY Routine 12/17/2024 9:11 AM CDT Vitamin D deficiency due to chronic kidney disease CBC WITH AUTO DIFFERENTIAL Routine 12/17/2024 9:11 AM CDT Renal osteodystrophy PTH Routine 12/17/2024 9:11 AM CDT Renal osteodystrophy RENAL FUNCTION PANEL Routine 12/17/2024 9:11 AM CDT Renal osteodystrophy DEVICE CHECK - REMOTE Routine 12/17/2024 4:01 AM CDT US VEIN DUPLEX UPPER EXTREMITY BILATERAL COMPLETE Schedule Routine, Read Routine (OP Routine) 12/02/2024 1:34 PM CDT 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) from Last 3 Months Results * COPY(IES) SENT TO: (02/10/2025 12:53 PM CDT) COPY(IES) SENT TO: [facility] Comment: [facility] HEART - COPY TO [facility] [address] [place] [address] 02/10/2025 12:5 3 PM CDT 02/10/2025 12:54 PM CDT us Mikal Purcell MD LAB BLOOD ORDERABLES Fi nal Result [facility] * (ABNORMAL) Basic metabolic panel (02/10/2025 12:53 PM CDT) Pathologist [facility] Glucose 71 65 - 99 mg/dL [facility] Comment: Fasting reference interval BUN 36(H) 7 - 25 mg/dL [facility] Creatinine 2.48(H) 0.50 - 1.03 mg/dL [facility] eGFR 22(L) > OR = 60 mL/min/1.7 3m2 [facility] BUN/creat ratio 15 6 - 22 (calc) [facility] Sodium 142 135 - 146 mmol/L [facility] Potassium, pl 5.1 3.5 - 5.3 mmol/L [facility] Chloride 100 98 - 110 mmol/L [facility] CO2 33(H) 20 - 32 mmol/L [facility] Calcium 9.6 8.6 - 10.4 mg/dL [facility] Blood 02/10/2025 12:5 3 PM CDT 02/10/2025 12:54 PM CDT us Mikal Purcell MD LAB BLOOD ORDERABLES nal Result [facility] [address] [place] [address] * TRANSTHORACIC ECHO (TTE) LIMITED/FOLLOW UP W LTD DOPPLER/CF W CONTRAST (02/02/2025 3:27 PM CDT) Pathologist [facility] Emergency Department EF Mod BP 24 % CONS SCIMAGE Anatomical Region Laterality Modality Ultrasound 02/02/2025 2:49 PM CDT Narrative 02/02/2025 4:55 PM CDT [facility] Cardiac Diagnostic Lab [address], [address] [place] [address] Transthoracic Echocardiographic Report Patient Name: KAILASH SÁNCHEZLesley Martinez : 1965 (59y 11m) Sex: F Study Date: 02/02/2025 02:49:30 PM Ht(Inch): 67 Wt(Lb): 175.05 BSA: 1.94 Corporate Pilot: Anne Valentine RDCS Location: [facility] Order Provider: MIKAL PURCELL Heart Rate: 60 BMI: 27.41 BP: 107 / 61 Ref Provider: PURCELLMIKAL PROCEDURES: Echocardiographic Report: Limited transthoracic 2D echo with contrast, includes spectral and tissue Doppler, color flow Doppler, and/or M-mode, when performed. Additional Procedures: Myocardial strain imaging was performed. Contrast: Contrast Enhancement was Employed: After initial imaging due to sub- optimal quality related to co-morbidity defined by patient's body habitus, due to suboptimal image quality with inadequate visualization of at least 2 of 16 LV wall segments in any view after initial imaging. Perflutren contrast was administered using the volume necessary to obtain adequate images and. 0.8 ml Optison Administered, (2.2 ml wasted). Technically difficult study due to: Poor acoustic windows. INDICATIONS: I50.42 Chronic combined systolic (congestive) and diastolic (congestive) heart failure. CONCLUSIONS: 1. Severely dilated left ventricle based on volume index. Eccentric LV hypertrophy. Severely depressed left ventricular systolic function. The Ejection Fraction (Pineda's) is measured at 24 %. Grade II diastolic dysfunction (elevated mean LA pressure). The average global longitudinal strain is abnormal. 2. Resting Segmental Wall Motion Analysis: Total wall motion score is 2.65. There is dyskinesis of the apical septal wall. There is hypokinesis of the entire inferolateral wall. There is hypokinesis of the basal to mid inferior wall. There is hypokinesis of the basal to mid inferoseptal wall. There is hypokinesis of the basal anterolateral wall. The remaining left ventricular segments demonstrate akinesis. 3. Normal right ventricular size. Normal right ventricular systolic function. 4. Moderately dilated left atrium. 5. Right atrial dilatation. Catheter tip noted in right atrium. 6. There is no significant valvular heart disease by limited views. 7. The estimated pulmonary artery systolic pressure is 26.0 mmHg. COMPARISONS: On [id number] comparison with prior TTE on 10/21/24, the LVEF appears somewhat improved. There is an apical filling defect that may represent a resolving apical anne thrombus that was not well seen on prior study. Pt noted to be on apixaban per Epic. ATTESTATION: I have personally reviewed and interpreted this study without fellow or resident. DISCLAIMER: The study images and the final report will be retained in the patient chart by the Echo Laboratory for the legally required time period. This chart constitutes the legal record of any testing performed. FINDINGS: Left Ventricle: Severely dilated left ventricle based on volume index. Eccentric LV hypertrophy. Severely depressed left ventricular systolic function. The Ejection Fraction (Pineda's) is measured at 24 %. Grade II diastolic dysfunction (elevated mean LA pressure). The average global longitudinal strain is abnormal. The LV global strain is: -5.7 %. Possible left ventricular laminal apical mural thrombus. Resting Segmental Wall Motion Analysis: Total wall motion score is 2.65. There is dyskinesis of the apical septal wall. There is hypokinesis of the entire inferolateral wall. There is hypokinesis of the basal to mid inferior wall. There is hypokinesis of the basal to mid inferoseptal wall. There is hypokinesis of the basal anterolateral wall. The remaining left ventricular segments demonstrate akinesis. Right Ventricle: Normal right ventricular size. Normal right ventricular systolic function. Left Atrium: Moderately dilated left atrium. Right Atrium: Right atrial dilatation. Catheter tip noted in right atrium. Mitral Valve: Normal mitral valve structure. Mild mitral valve regurgitation. No stenosis present. Aortic Valve: Normal trileaflet aortic valve. No aortic regurgitation. No aortic valve stenosis. The mean transaortic gradient is 5 mmHg. The aortic valve area by the continuity equation (using VTI) is 1.79 cm2. Aortic valve dimensionless index is 0.48. Tricuspid Valve: Normal tricuspid valve structure. No tricuspid regurgitation. No tricuspid valve stenosis. IVC: The IVC was <2.1 cm and collapsibility >50%. (est. RA pressure 0-5 mmHg). The estimated RA pressure is 3 mmHg. PASP: The estimated pulmonary artery systolic pressure is 26.0 mmHg. PASP may be underestimated due to faint TR jet. MEASUREMENTS: 2D/MM Value Range Doppler Value Range LVIDd 2D 6.40 cm [ 3.80 - 5.20 ] AV Peak Josué 1.6 m/s [ 1.0 - 1.7 ] LVIDs 2D 5.76 cm [ 2.20 - 3.50 ] AV Peak PG 10.24 mmHg IVSd 2D 0.85 cm [ 0.60 - 0.90 ] AV Mean PG 5 mmHg LVPWd 2D 0.98 cm [ 0.60 - 0.90 ] AV VTI 32.1 cm LV Thickness Ratio 0.9 LVOT Peak Josué 0.8 m/s [ 0.7 - 1.1 ] LV FS 2D 9.97 % [ 27.00 - 45.00 ] LVOT Peak PG 2.56 mmHg LV Mass 2D 254.68 g LVOT Mean PG 1 mmHg LV Mass Index 2D 131.46 g/m2 LVOT VTI 15.4 cm RWT 0.31 LVOT Diam 2.18 cm EDV Mod BP 242.00 ml [ 46.00 - 106.00 ] ARTHUR VTI 1.79 cm2 LV EDV Index 124.91 ml/m2 LVOT/AV VTI 0.48 - Dimensionless index (DVI) ESV Mod BP 183.00 ml [ 14.00 - 42.00 ] MV E Peak Josué 0.9 m/s [ 0.6 - 1.3 ] EF Mod BP 24 % [ 54 - 74 ] MV A Peak Josué 0.6 m/s [ 1.0 - 1.2 ] LV GLS -5.7 % [ -25.0 - -18.0 ] MV E/A 1.6 ratio [ 0.8 - 1.5 ] LA Length 4C 6.11 cm MV Decel Time 275.45 msec [ 104.00 - 258.00 ] LA Length 2C 5.94 cm Med E` Josué 2.8 cm/sec [ 8.0 - 25.0 ] LA Volume BP 84.18 ml Lat E` Josué 8.3 cm/sec [ 10.0 - 25.0 ] LA Volume Index 43.45 ml/m2 [ 16.00 - 34.00 ] Average E/E` 16.22 RV Base Dimen 2D 3.9 cm [ 2.5 - 4.2 ] RV S` 9.03 cm/sec TAPSE 1.84 cm [ 1.71 - 5.00 ] TR Peak Josué 2.4 m/s [ 1.0 - 2.8 ] RA Volume 69.05 ml TR Peak PG 23.0 mmHg RA Volume Index 35.64 ml/m2 RA Pressure 3 mmHg RVSP 26.00 mmHg Electronically Signed By: Subha Olson MD 02/02/2025 4:54:56 PM CDT Wall Motion Analysis - Resting Procedure Note De Subha Pinto MD - 02/02/2025 [facility] Cardiac Diagnostic Lab [address] , [address] [place] [address] Transthoracic Echocardiographic Report Patient Name: SUBHA SÁNCHEZ J : 1965 (59y 11m) Sex: F Study Date: 02/02/2025 02:49:30 PM Ht(Inch): 67 Wt(Lb): 175.05 BSA: 1.94 Corporate Pilot: Anne Valentine RDCS Location: [facility] Order Provider:MIKAL PURCELL Heart Rate: 60 BMI: 27.41 BP: 107 / 61 Ref Provider: MIKAL PURCELL PROCEDURES: Echocardiographic Report: Limited transthoracic 2D echo with contrast,includes spectral and tissue Doppler, color flow Doppler, and/or M-mode, when performed. Additional Procedures: Myocardial strain imaging was performed. Contrast: Contrast Enhancement was Employed: After initial imaging due tosub- optimal quality related to co-morbidity defined by patient's body habitus, due tosuboptimal image quality with inadequate visualization of at least 2 of 16 LV wallsegments in any view after initial imaging. Perflutren contrast was administered using thevolume necessary to obtain adequate images and. 0.8 ml Optison Administered, (2.2ml wasted). Technically difficult study due to: Poor acoustic windows. 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 CONCLUSIONS: 1. Severely dilated left ventricle based on volume index. Eccentric LVhypertrophy. Severely depressed left ventricular systolic function. The EjectionFraction (Pineda's) is measured at 24 %. Grade II diastolic dysfunction (elevated mean LApressure). The average global longitudinal strain is abnormal. 2. Resting Segmental Wall Motion Analysis: Total wall motion score is2.65. There is dyskinesis of the apical septal wall. There is hypokinesis of the entireinferolateral wall. There is hypokinesis of the basal to mid inferior wall. There ishypokinesis of the basal to mid inferoseptal wall. There is hypokinesis of the basalanterolateral wall. The remaining left ventricular segments demonstrate akinesis. 3. Normal right ventricular size. Normal right ventricular systolicfunction. 4. Moderately dilated left atrium. 5. Right atrial dilatation. Catheter tip noted in right atrium. 6. There is no significant valvular heart disease by limited views. 7. The estimated pulmonary artery systolic pressure is 26.0 mmHg. COMPARISONS: On [id number] comparison with prior TTE on 10/21/24, the LVEF appearssomewhat improved. There is an apical filling defect that may represent a resolving apicalmurali thrombus that was not well seen on prior study. Pt noted to be on apixaban perEpic. ATTESTATION: I have personally reviewed and interpreted this study without fellow orresident. DISCLAIMER: The study images and the final report will be retained in the patientchart by the Echo Laboratory for the legally required time period. This chart constitutesthe legal record of any testing performed. FINDINGS: Left Ventricle: Severely dilated left ventricle based on volume index.Eccentric LV hypertrophy. Severely depressed left ventricular systolic function. TheEjection Fraction (Pineda's) is measured at 24 %. Grade II diastolic dysfunction (elevatedmean LA pressure). The average global longitudinal strain is abnormal. The LVglobal strain is: -5.7 %. Possible left ventricular laminal apical mural thrombus. Resting Segmental Wall Motion Analysis: Total wall motion score is 2.65.There is dyskinesis of the apical septal wall. There is hypokinesis of the entireinferolateral wall. There is hypokinesis of the basal to mid inferior wall. There ishypokinesis of the basal to mid inferoseptal wall. There is hypokinesis of the basalanterolateral wall. The remaining left ventricular segments demonstrate akinesis. Right Ventricle: Normal right ventricular size. Normal right ventricularsystolic function. Left Atrium: Moderately dilated left atrium. Right Atrium: Right atrial dilatation. Catheter tip noted in rightatrium. Mitral Valve: Normal mitral valve structure. Mild mitral valveregurgitation. No stenosis present. Aortic Valve: Normal trileaflet aortic valve. No aortic regurgitation. Noaortic valve stenosis. The mean transaortic gradient is 5 mmHg. The aortic valve areaby the continuity equation (using VTI) is 1.79 cm2. Aortic valve dimensionlessindex is 0.48. Tricuspid Valve: Normal tricuspid valve structure. No tricuspidregurgitation. No tricuspid valve stenosis. IVC: The IVC was <2.1 cm and collapsibility >50%. (est. RA pressure 0-5mmHg). The estimated RA pressure is 3 mmHg. PASP: The estimated pulmonary artery systolic pressure is 26.0 mmHg. PASPmay be underestimated due to faint TR jet. MEASUREMENTS: 2D/MM Value Range DopplerValue Range LVIDd 2D 6.40 cm [ 3.80 - 5.20 ] AV Peak Vel1.6 m/s [ 1.0 - 1.7 ] LVIDs 2D 5.76 cm [ 2.20 - 3.50 ] AV Peak PG10.24 mmHg IVSd 2D 0.85 cm [ 0.60 - 0.90 ] AV Mean PG5 mmHg LVPWd 2D 0.98 cm [ 0.60 - 0.90 ] AV VTI32.1 cm LV Thickness Ratio 0.9 LVOT Peak Vel0.8 m/s [ 0.7 - 1.1 ] LV FS 2D 9.97 % [ 27.00 - 45.00 ] LVOT Peak PG2.56 mmHg LV Mass 2D 254.68 g LVOT Mean PG1 mmHg LV Mass Index 2D 131.46 g/m2 LVOT VTI15.4 cm RWT 0.31 LVOT Diam2.18 cm EDV Mod BP 242.00 ml [ 46.00 - 106.00 ] ARTHUR VTI1.79 cm2 LV EDV Index 124.91 ml/m2 LVOT/AV VTI0.48 - Dimensionless index (DVI) ESV Mod BP 183.00 ml [ 14.00 - 42.00 ] MV E Peak Vel0.9 m/s [ 0.6 - 1.3 ] EF Mod BP 24 % [ 54 - 74 ] MV A Peak Vel0.6 m/s [ 1.0 - 1.2 ] LV GLS -5.7 % [ -25.0 - -18.0 ] MV E/A1.6 ratio [ 0.8 - 1.5 ] LA Length 4C 6.11 cm MV Decel Kubp748.45 msec [ 104.00 - 258.00 ] LA Length 2C 5.94 cm Med E` Vel2.8 cm/sec [ 8.0 - 25.0 ] LA Volume BP 84.18 ml Lat E` Vel8.3 cm/sec [ 10.0 - 25.0 ] LA Volume Index 43.45 ml/m2 [ 16.00 - 34.00 ] Average E/E`16.22 RV Base Dimen 2D 3.9 cm [ 2.5 - 4.2 ] RV S`9.03 cm/sec TAPSE 1.84 cm [ 1.71 - 5.00 ] TR Peak Vel2.4 m/s [ 1.0 - 2.8 ] RA Volume 69.05 ml TR Peak PG23.0 mmHg RA Volume Index 35.64 ml/m2 RA Pressure3 mmHg RVSP 26.00 mmHg Electronically Signed By: Subha Olson MD 02/02/2025 4:54:56 PM CDT Wall Motion Analysis - Resting us Mikal Purcell MD CV ECHO PROCEDURES Claudia l Result * (ABNORMAL) Pro B-type natriuretic peptide (01/29/2025 9:56 AM CDT) NT PROBNP 6,026(H) <125 pg/mL [facility] Blood 01/29/2025 9:56 AM CDT 01/29/2025 9:57 AM CDT us Mikal Purcell MD LAB BLOOD ORDERABLES Fi nal Result [facility] [address] [place] [address] * (ABNORMAL) CBC with auto differential (01/29/2025 9:56 AM CDT) Pathologist [facility] WBC 6.3 3.8 - 10.8 Thousand/u L [facility] RBC, POC 3.80 3.80 - 5.10 Million/uL [facility] Hgb 11.4(L) 11.7 - 15.5 g/dL [facility] Hct 36.2 35.0 - 45.0 % [facility] MCV 95.3 80.0 - 100.0 fL [facility] MCH 30.0 27.0 - 33.0 pg [facility] MCHC 31.5(L) 32.0 - 36.0 g/dL [facility] Comment: For adults, a slight decrease in the calculated MCHC value (in the range of 30 to 32 g/dL) is most likely not clinically significant; however, it should be interpreted with caution in correlation with other red cell parameters and the patient's clinical condition. Rdw 14.3 11.0 - 15.0 % [facility] Platelets 240 140 - 400 Thousand/u L [facility] MPV 9.4 7.5 - 12.5 fL [facility] Neutrophils, abs 4,038 1,500 - 7,800 cells/uL [facility] Lymphocytes, abs 1,556 850 - 3,900 cells/uL [facility] Monocyte abs 592 200 - 950 cells/uL [facility] Eosinophils, abs 82 15 - 500 cells/uL [facility] Basophils, abs 32 0 - 200 cells/uL [facility] Neutrophils 64.1 % [facility] Lymphocyte pct 24.7 % [facility] Monocytes 9.4 % [facility] Eosinophils 1.3 % [facility] Basophils 0.5 % [facility] Blood 01/29/2025 9:56 AM CDT 01/29/2025 9:57 AM CDT Mikal Purcell MD LAB BLOOD ORDERABLES Fi nal Result Performing Organization Address [facility] Co de Phone Number [facility] [address] [place] [address] * Magnesium (01/29/2025 9:56 AM CDT) Pathologist [facility] Magnesium 2.3 1.5 - 2.5 mg/dL [facility] Blood 01/29/2025 9:56 AM CDT 01/29/2025 9:57 AM CDT Mikal Purcell MD LAB BLOOD ORDERABLES Fi nal Result Performing Organization Address [facility] de Phone Number [facility] [address] [place] [address] * (ABNORMAL) Comprehensive metabolic panel (01/29/2025 9:56 AM CDT) Pathologist [facility] Glucose 94 65 - 99 mg/dL [facility] Comment: Fasting reference interval BUN 62(H) 7 - 25 mg/dL [facility] Creatinine 2.75(H) 0.50 - 1.03 mg/dL [facility] eGFR 20(L) > OR = 60 mL/min/1.7 3m2 [facility] BUN/creat ratio 23(H) 6 - 22 (calc) [facility] Sodium 144 135 - 146 mmol/L [facility] Potassium, pl 2.9(L) 3.5 - 5.3 mmol/L [facility] Chloride 94(L) 98 - 110 mmol/L [facility] CO2 38(H) 20 - 32 mmol/L [facility] Calcium 9.9 8.6 - 10.4 mg/dL [facility] Protein, sr 6.9 6.1 - 8.1 g/dL [facility] Albumin 4.3 3.6 - 5.1 g/dL [facility] GLOBULIN 2.6 1.9 - 3.7 g/dL (calc) [facility] Alb/glob ratio 1.7 1.0 - 2.5 (calc) [facility] Bilirubin, total 0.5 0.2 - 1.2 mg/dL [facility] Alk phos 93 37 - 153 U/L [facility] AST 29 10 - 35 U/L [facility] ALT (SGPT) 24 6 - 29 U/L [facility] Blood 01/29/2025 9:56 AM CDT 01/29/2025 9:57 AM CDT us Mikal Purcell MD LAB BLOOD ORDERABLES Fi nal Result [facility] [address] [place] [address] * COPY(IES) SENT TO: (01/23/2025 10:59 AM CDT) COPY(IES) SENT TO: [facility] Comment: [facility] [address] [place] [address] 01/23/2025 10:5 9 AM CDT 01/23/2025 11:00 AM CDT Mikal Purcell MD LAB BLOOD ORDERABLES Fi nal Result Performing Organization Address [facility] Co de Phone Number [facility] * (ABNORMAL) Pro B-type natriuretic peptide (01/23/2025 10:59 AM CDT) NT PROBNP 5,655(H) <125 pg/mL [facility] Blood 01/23/2025 10:5 9 AM CDT 01/23/2025 11:00 AM CDT Mikal Purcell MD LAB BLOOD ORDERABLES Fi nal Result Performing Organization Address [facility] de Phone Number [facility] [address] [place] [address] * Magnesium (01/23/2025 10:59 AM CDT) Magnesium 2.3 1.5 - 2.5 mg/dL [facility] Blood 01/23/2025 10:5 9 AM CDT 01/23/2025 11:00 AM CDT Mikal Purcell MD LAB BLOOD ORDERABLES Fi nal Result Performing Organization Address [facility] de Phone Number [facility] [address] [place] [address] * (ABNORMAL) Comprehensive metabolic panel (01/23/2025 10:59 AM CDT) Glucose 185(H) 65 - 99 mg/dL [facility] Comment: Fasting reference interval For someone without known diabetes, a glucose value >125 mg/dL indicates that they may have diabetes and this should be confirmed with a follow-up test. BUN 94(H) 7 - 25 mg/dL [facility] Comment: Verified by repeat analysis. Creatinine 3.85(H) 0.50 - 1.03 mg/dL [facility] Comment: Verified by repeat analysis. eGFR 13(L) > OR = 60 mL/min/1.7 3m2 [facility] BUN/creat ratio 24(H) 6 - 22 (calc) [facility] Sodium 138 135 - 146 mmol/L [facility] Potassium, pl 2.5(LL) 3.5 - 5.3 mmol/L [facility] Comment: Verified by repeat analysis. Chloride 86(L) 98 - 110 mmol/L [facility] CO2 37(H) 20 - 32 mmol/L [facility] Calcium 10.1 8.6 - 10.4 mg/dL [facility] Protein, sr 7.7 6.1 - 8.1 g/dL [facility] Albumin 4.6 3.6 - 5.1 g/dL [facility] GLOBULIN 3.1 1.9 - 3.7 g/dL (calc) [facility] Alb/glob ratio 1.5 1.0 - 2.5 (calc) [facility] Bilirubin, total 0.7 0.2 - 1.2 mg/dL [facility] Alk phos 102 37 - 153 U/L [facility] AST 33 10 - 35 U/L [facility] ALT (SGPT) 25 6 - 29 U/L [facility] Blood 01/23/2025 10:5 9 AM CDT 01/23/2025 11:00 AM CDT us Mikal Purcell MD LAB BLOOD ORDERABLES Fi nal Result [facility] [address] [place] [address] * (ABNORMAL) Pro B-type natriuretic peptide (01/05/2025 8:24 AM CDT) NT PROBNP 5,279(H) <125 pg/mL [facility] Blood 01/05/2025 8:24 AM CDT 01/05/2025 8:25 AM CDT Mikal Purcell MD LAB BLOOD ORDERABLES Fi nal Result Performing Organization Address [facility] Co de Phone Number [facility] [address] [place] [address] * (ABNORMAL) Basic metabolic panel (01/05/2025 8:24 AM CDT) Glucose 116(H) 65 - 99 mg/dL [facility] Comment: Fasting reference interval For someone without known diabetes, a glucose value between 100 and 125 mg/dL is consistent with prediabetes and should be confirmed with a follow-up test. BUN 49(H) 7 - 25 mg/dL [facility] Creatinine 2.58(H) 0.50 - 1.03 mg/dL [facility] eGFR 21(L) > OR = 60 mL/min/1.7 3m2 [facility] BUN/creat ratio 19 6 - 22 (calc) [facility] Sodium 143 135 - 146 mmol/L [facility] Potassium, pl 3.5 3.5 - 5.3 mmol/L [facility] Chloride 96(L) 98 - 110 mmol/L [facility] CO2 38(H) 20 - 32 mmol/L [facility] Calcium 9.5 8.6 - 10.4 mg/dL [facility] Blood 01/05/2025 8:24 AM CDT 01/05/2025 8:25 AM CDT Mikal Purcell MD LAB BLOOD ORDERABLES Fi nal Result Performing Organization Address [facility] Co de Phone Number [facility] [address] [facility] [place] [address] * Magnesium (12/26/2024 1:58 PM CDT) Pathologist [facility] Magnesium 2.3 1.5 - 2.5 mg/dL [facility] Blood 12/26/2024 1:58 PM CDT 12/26/2024 1:58 PM CDT Mikal Purcell MD LAB BLOOD ORDERABLES Fi nal Result Performing Organization Address [facility]/ZIP Co de Phone Number [facility] [address] [facility] [place] [address] * (ABNORMAL) Basic metabolic panel (12/26/2024 1:58 PM CDT) [facility] Glucose 113(H) 65 - 99 mg/dL [facility] Comment: Fasting reference interval For someone without known diabetes, a glucose value between 100 and 125 mg/dL is consistent with prediabetes and should be confirmed with a follow-up test. BUN 79(H) 7 - 25 mg/dL [facility] Creatinine 3.55(H) 0.50 - 1.03 mg/dL [facility] eGFR 14(L) > OR = 60 mL/min/1.7 3m2 [facility] BUN/creat ratio 22 6 - 22 (calc) [facility] Sodium 136 135 - 146 mmol/L [facility] Potassium, pl 3.1(L) 3.5 - 5.3 mmol/L [facility] Chloride 86(L) 98 - 110 mmol/L [facility] CO2 38(H) 20 - 32 mmol/L [facility] Calcium 10.0 8.6 - 10.4 mg/dL [facility] Blood 12/26/2024 1:58 PM CDT 12/26/2024 1:58 PM CDT Mikal Purcell MD LAB BLOOD ORDERABLES Fi nal Result Performing Organization Address City/[facility]/ZIP Co de Phone Number [facility] [address] [facility] [place] [address] * Copy received from (12/17/2024 9:11 AM CDT) Copy Rec'd from: [facility] Comment: [facility] - [facility] [phone] [address] 12/17/2024 9:11 AM CDT 12/17/2024 9:11 AM CDT Narrative [facility] - 12/18/2024 9:36 AM CDT FASTING:YES FASTING: YES us Liliana Medellin MD LAB BLOOD ORDERABLES Fi nal Result Performing Organization Address City/[facility]/ZIP Co de Phone Number [facility] * COPY(IES) SENT TO: (12/17/2024 9:11 AM CDT) COPY(IES) SENT TO: [facility] Comment: [facility] RENAL [facility] [phone] [address] 12/17/2024 9:11 AM CDT 12/17/2024 9:11 AM CDT Narrative [facility] - 12/18/2024 9:36 AM CDT FASTING:YES FASTING: YES us Liliana Medellin MD LAB BLOOD ORDERABLES Fi nal Result Performing Organization Address City/[facility]/ZIP Co de Phone Number [facility] * Iron profile w/ IBC (12/17/2024 9:11 AM CDT) Pathologist [facility] Iron 105 45 - 160 mcg/dL [facility] TIBC 316 250 - 450 mcg/dL (calc) [facility] Iron saturation 33 16 - 45 % (calc) [facility] Blood 12/17/2024 9:11 AM CDT 12/17/2024 9:11 AM CDT Narrative [facility] - 12/18/2024 9:36 AM CDT FASTING:YES FASTING: YES us Liliana Medellin MD LAB BLOOD ORDERABLES Fi nal Result [facility] [address] [place] [address] * (ABNORMAL) CBC with auto differential (12/17/2024 9:11 AM CDT) WBC 6.0 3.8 - 10.8 Thousand/u L [facility] RBC, POC 3.81 3.80 - 5.10 Million/uL [facility] Hgb 11.1(L) 11.7 - 15.5 g/dL [facility] [facility] Hct 36.4 35.0 - 45.0 % [facility] MCV 95.5 80.0 - 100.0 fL [facility] MCH 29.1 27.0 - 33.0 pg [facility] MCHC 30.5(L) 32.0 - 36.0 g/dL [facility] Comment: For adults, a slight decrease in the calculated MCHC value (in the range of 30 to 32 g/dL) is most likely not clinically significant; however, it should be interpreted with caution in correlation with other red cell parameters and the patient's clinical condition. Rdw 14.2 11.0 - 15.0 % [facility] Platelets 218 140 - 400 Thousand/u L [facility] MPV 9.2 7.5 - 12.5 fL [facility] Neutrophils, abs 4,440 1,500 - 7,800 cells/uL [facility] Lymphocytes, abs 996 850 - 3,900 cells/uL [facility] Monocyte abs 498 200 - 950 cells/uL [facility] Eosinophils, abs 48 15 - 500 cells/uL [facility] Basophils, abs 18 0 - 200 cells/uL [facility] Neutrophils 74 % [facility] Lymphocyte pct 16.6 % [facility] Monocytes 8.3 % [facility] Eosinophils 0.8 % [facility] Basophils 0.3 % [facility] Blood 12/17/2024 9:11 AM CDT 12/17/2024 9:11 AM CDT Narrative [facility] - 12/18/2024 9:36 AM CDT FASTING:YES FASTING: YES Liliana Medellin MD LAB BLOOD ORDERABLES Fi nal Result Performing Organization Address [facility] Co de Phone Number [facility] [address] [place] [address] * (ABNORMAL) Vitamin D 25 hydroxy (12/17/2024 9:11 AM CDT) Vitamin D 25-OH 28(L) 30 - 100 ng/mL [facility] Comment: Vitamin D Status 25-OH Vitamin D: Deficiency: <20 ng/mL Insufficiency: 20 - 29 ng/mL Optimal: > or = 30 ng/mL For 25-OH Vitamin D testing on patients on D2-supplementation and patients for whom quantitation of D2 and D3 fractions is required, the [facility]ure[facility](TM) 25-OH VIT D, (D2,D3), LC/MS/MS is recommended: order code 46053 (patients >2yrs). See Note 1 Note 1 For additional information, please refer to http://education.Visys/faq/HAK458 (This link is being provided for informational/ educational purposes only.) Blood 12/17/2024 9:11 AM CDT 12/17/2024 9:11 AM CDT Narrative [facility] - 12/18/2024 9:36 AM CDT FASTING:YES FASTING: YES Liliana Medellin MD LAB BLOOD ORDERABLES Fi nal Result Performing Organization Address [facility]/ZIP Co de Phone Number [facility] [address] [place] [address] * (ABNORMAL) PTH (12/17/2024 9:11 AM CDT) Parathyroid hormone, intact 100(H) 16 - 77 pg/mL [facility] Comment: Interpretive Guide Intact PTH Calcium ------- Normal Parathyroid Normal Normal Hypoparathyroidism Low or Low Normal Low Hyperparathyroidism Primary Normal or High High Secondary High Normal or Low Tertiary High High Non-Parathyroid Hypercalcemia Low or Low Normal High Blood 12/17/2024 9:11 AM CDT 12/17/2024 9:11 AM CDT Narrative [facility] - 12/18/2024 9:36 AM CDT FASTING:YES FASTING: YES Liliana Medellin MD LAB BLOOD ORDERABLES Fi nal Result Performing Organization Address [facility]/ZIP Co de Phone Number [facility] [address] [place] [address] * (ABNORMAL) Ferritin (12/17/2024 9:11 AM CDT) Ferritin 532(H) 16 - 232 ng/mL [facility] Blood 12/17/2024 9:11 AM CDT 12/17/2024 9:11 AM CDT Narrative [facility] - 12/18/2024 9:36 AM CDT FASTING:YES FASTING: YES Liliana Medellin MD LAB BLOOD ORDERABLES Fi nal Result Performing Organization Address [facility] Co de Phone Number [facility] [address] [place] [address] * (ABNORMAL) Renal function panel (12/17/2024 9:11 AM CDT) Glucose 106(H) 65 - 99 mg/dL [facility] Comment: Fasting reference interval For someone without known diabetes, a glucose value between 100 and 125 mg/dL is consistent with prediabetes and should be confirmed with a follow-up test. BUN 39(H) 7 - 25 mg/dL [facility] Creatinine 2.41(H) 0.50 - 1.03 mg/dL [facility] eGFR 23(L) > OR = 60 mL/min/1.7 3m2 [facility] BUN/creat ratio 16 6 - 22 (calc) [facility] Sodium 140 135 - 146 mmol/L [facility] Potassium, pl 4.0 3.5 - 5.3 mmol/L [facility] Chloride 97(L) 98 - 110 mmol/L [facility] CO2 32 20 - 32 mmol/L [facility] Calcium 9.7 8.6 - 10.4 mg/dL [facility] Phosphorus, sr 4.4 2.5 - 4.5 mg/dL [facility] Albumin 4.1 3.6 - 5.1 g/dL [facility] Blood 12/17/2024 9:11 AM CDT 12/17/2024 9:11 AM CDT Narrative [facility] - 12/18/2024 9:36 AM CDT FASTING:YES FASTING: YES Liliana Medellin MD LAB BLOOD ORDERABLES nal Result [facility] [address] [place] [address] * DEVICE CHECK - REMOTE (12/17/2024 4:01 AM CDT) Anatomical Region Laterality Modality Other 12/17/2024 4:01 AM CDT Narrative 01/15/2025 1:11 AM CDT Interpretation Summary: Battery and Leads (BL) Normal parameters noted on battery and lead(s) --- 8.15 years remaining (this is an estimate based on prior usage) Presenting Rhythm (VA) Atrial Pacing-Ventricular Sensing (AP-VS) --- rate 60 Arrhythmic events (AE) No new arrhythmic events in monitoring period Transmission Information (TI) Device Summary Report Procedure Note Jg Cobb MD - 01/15/2025 Interpretation Summary: Battery and Leads (BL) Normal parameters noted on battery and lead(s) --- 8.15 years remaining(this is an estimate based on prior usage) Presenting Rhythm (VA) Atrial Pacing-Ventricular Sensing (AP-VS) --- rate 60 Arrhythmic events (AE) No new arrhythmic events in monitoring period Transmission Information (TI) Device Summary Report Jg Cobb MD [facility] PRO CEDURES Final Result * US Vein Duplex Upper Extremity Bilateral Complete (12/02/2024 1:34 PM CDT) Anatomical Region Laterality Modality Vascular Bilateral Ultrasound 12/02/2024 4:04 PM CDT Impressions 12/02/2024 4:33 PM CDT 1. 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 Dictated by: Koby Dolan M.D. The radiology attending physician has personally reviewed this study, and had reviewed and/or edited this written report and agrees with it. Electronically signed by: Vin Santoro M.D., Ph.D Narrative 12/02/2024 4:33 PM CDT EXAMINATION: BILATERAL UPPER EXTREMITY VENOUS DOPPLER HISTORY: 59-year-old female with chronic thrombosis of left internal jugular vein. COMPARISON: None TECHNIQUE: Ultrasound examination was performed from the neck to the forearm using arellano scale, duplex color flow, and spectral analysis. The proximal internal jugular, subclavian, axillary, brachial, and basilic veins were evaluated. Both augmentation and compression maneuvers were performed. FINDINGS: Focal nonocclusive chronic thrombus within the proximal left internal jugular vein. Left internal jugular vein is also compressible. Remaining examined upper extremity deep veins are easily compressible and have no signs of thrombosis. 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 COMPARISON: None TECHNIQUE: Ultrasound examination was performed from the neck to the forearm using arellano scale, duplex color flow, and spectral analysis. The proximal internal jugular, subclavian, axillary, brachial, and basilic veins were evaluated. Both augmentation and compression maneuvers were performed. FINDINGS: Focal nonocclusive chronic thrombus within the proximal left internal jugular vein. Left internal jugular vein is also compressible. Remaining examined upper extremity deep veins are easily compressible and have no signs of thrombosis. IMPRESSION: 1. 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 Dictated by: Koby Dolan M.D. The radiology attending physician has personally reviewed this study, and had reviewed and/or edited this written report and agrees with it. Electronically signed by: Vin Santoro M.D., Ph.D us Mikal Purcell MD [facility] PROCEDURES Final Result from Last 3 Months Insurance [employer] OPEN ACCESS [facility] OPEN [facility] Advance Directives For more information, please contact: [phone] * Full Code (Latest Code Status on File) Date Activated Date Inactivated Comments 07/21/2024 5:10 AM 07/31/2024 7:43 PM Care Teams Professional Architect Relationship Specialty Start Date End Date Yolande Santiago DO [address] [place] [address] PCP - General Family Medicine 12/02/24 Mikal Purcell MD [address] [place] [address] Consulting Physician Cardiology 07/31/24
--- OUTSIDE RECORDS SUMMARY | 2025-02-25 10:32 | XMS_ITS | Encounter Summary ---
Author Organization [facility] Address [address] [place] [address] Phone Care Team Providers Care Strategic Intelligence Officer Name Role Phone Marjorie Caballero MD Unavailable [phone] Yolande Santiago DO Primary Care Provider Encounter Details Date Type Department Care Team (Late st Contact Info) Description 12/28/2024 Results Follow-Up [facility] [address] [place] [address] [place] [address] Marjorie Caballero MD [address] [place] [address] Basic metabolic panel, Magnesium Social History Tobacco Use Types Packs/Day Years Used Date Smoking Tobacco: Former Cigarettes Q uit: 1999 AUDIT-C Answer Date Recorded Q1: How often [...] on file 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 Gender Identity Not on file Sexual Orientation Not on file documented as of this encounter Plan of Treatment Not on file documented as of this encounter Procedures Procedure Name Priority Date/Time Associated Diagnosis Comments PRO B-TYPE NATRIURETIC PEPTIDE Routine 01/05/2025 8:24 AM CDT Decompensated heart failure (HCC) BASIC METABOLIC PANEL Routine 01/05/2025 8:24 AM CDT Decompensated heart failure (HCC) documented in this encounter Results * (ABNORMAL) Basic metabolic panel (01/05/2025 8:24 [...] 8:24 AM CDT 01/05/2025 8:25 AM CDT us Marjorie Caballero MD LAB BLOOD ORDERABLES Fi nal Result [facility] [address] [place] [address] * (ABNORMAL) Pro B-type natriuretic peptide (01/05/2025 8:24 AM CDT) NT PROBNP 5,279(H) <125 pg/mL [facility] Blood 01/05/2025 8:24 AM CDT 01/05/2025 8:25 AM CDT Marjorie Caballero MD LAB BLOOD ORDERABLES nal Result [facility] [address] [place] [address] documented in this encounter Visit Diagnoses Diagnosis Decompensated heart failure (HCC)- Primary documented in this encounter Care Teams Strategic Intelligence Officer Relationship Specialty Start Date End Date Yolande Santiago DO [address] [place] [address] PCP - General Family Medicine 12/02/24 Marjorie Caballero MD [address] [place] [address] Consulting Physician Cardiology 07/31/24 documented as of this encounter
== END 2025-02-25 09:24 | disposition home or self-care (01) ==
LOC: ANHFOHIMG 09:26
PROVIDERS: PCP Family Medicine; Visit Provider Family Medicine
DX: Z12.31 Encounter for screening mammogram for malignant neoplasm of breast (principal)
CPT/HCPCS: 77063; 77067